=== PATIENT | female | born 1955 | race Caucasian/White ===

== ENCOUNTER 2017-01-08 09:33 | Inpatient (IN) | payer OTHER ==
[~2017-01-08] VITALS: Ht 154.9 cm; Wt 73.1 kg
[2017-03-20] VITALS (10 sets, daily range): BP systolic 90–132; BP diastolic 55–76; PULSE 67–92; TEMP 98–98.8
[2017-03-20] MEDS ORDERED: PRILOSEC 20MG20 MG PO (06:17)
[2017-03-20] MEDS ORDERED: CLARITIN 1010 MG/TAB PO (06:18)
[2017-03-20] MEDS ORDERED: VOLTAREN-XR100 MG PO (06:19)
[2017-03-20] MEDS ORDERED: CENTRUM SILVER1 TAB PO (06:20)
[2017-03-20] MEDS ORDERED: CO Q-1010 M1 PO ×2 (06:21→06:26)
[2017-03-20] MEDS ORDERED: B-121000 MCG PO (06:22)
[2017-03-20] MEDS ORDERED: FOLIC ACID0.4 MG PO (06:23)
[2017-03-20] MEDS ORDERED: VITAMIN C500 MG PO (06:24)
[2017-03-20] MEDS ORDERED: METABOUP PLUS PO (06:24)
[2017-03-20] MEDS ORDERED: TYLENOL 8 HR PO (06:25)
[2017-03-20] MEDS ORDERED: ZOCOR 20MG20 MG PO (06:25)
[2017-03-20] MEDS ORDERED: [UNRECOGNIZED DRUG - OTHER] PO (06:27)
[2017-03-20] MEDS ORDERED: POTASSIUM PO (06:29)
[2017-03-20] MEDS ORDERED: NIFEREX-15150 MG/CAP PO (06:31)
[2017-03-20] MEDS ORDERED: NATURE'S BLE1000 MCG PO (06:32)
[2017-03-20] MEDS ORDERED: BACTROBAN 22GM22 GM NAS (06:33)
[2017-03-20] MEDS ORDERED: PHENYLEPHRINE H10 MG PO (06:34)
[2017-03-21] VITALS (7 sets, daily range): BP systolic 87–119; BP diastolic 49–67; PULSE 61–94; TEMP 98.2–98.5
[2017-03-21 06:25] LABS: HEMATOCRIT 34.6 % (37.0-47.0); HEMOGLOBIN 11.6 g/dl (12.5-16.0)
[2017-03-22 03:48] VITALS: BP 128/64; PULSE 98; TEMP 98
[2017-03-22 07:28] VITALS: BP 119/65; PULSE 103; TEMP 98
[2017-03-22 08:12] LABS: HEMATOCRIT 35.6 % (37.0-47.0); HEMOGLOBIN 11.9 g/dl (12.5-16.0)
[2017-03-22 11:08] VITALS: BP 112/55; PULSE 94; TEMP 99.2
[2017-03-22 16:24] VITALS: BP 128/64; PULSE 100; TEMP 98.9
[2017-03-22 20:32] VITALS: BP 128/69; PULSE 105; TEMP 99.4
[2017-03-22 23:27] VITALS: BP 135/70; PULSE 102; TEMP 98.4
[2017-03-23 03:21] VITALS: BP 125/66; PULSE 100; TEMP 98.1
[2017-03-23] MEDS ORDERED: ASPI325T6 PO (06:28)
[2017-03-23] MEDS ORDERED: NORCO 325 MG-7.1 TAB PO (06:29)
[2017-03-23] MEDS ORDERED: SENOKOT S 50 MG1 TAB PO (06:30)
[2017-03-23] MEDS ORDERED: ROXICODONE 55 MG/TAB PO (06:30)
[2017-03-23 07:15] VITALS: BP 112/73; PULSE 99; TEMP 98.4
== END 2017-03-23 10:49 | disposition home or self-care (01) | DRG 470 ==
LOC: JCC 03-20 05:18 → MEDICAL 03-20 05:18 → JCC 03-20 05:27
PROVIDERS: Orthopaedic Surgery
PROC: 0SRC0J9 Replacement of Right Knee Joint with Synthetic Substitute, Cemented, Open Approach (ICD-10-PCS; principal; 2017-03-20 07:30)
DX: M17.11 Unilateral primary osteoarthritis, right knee (principal); M06.9 Rheumatoid arthritis, unspecified; F17.210 Nicotine dependence, cigarettes, uncomplicated
CPT/HCPCS: A4315; A9284; C1713; C1776; J0690; J1100; J2250; J2270; J2405; J2704; J2765; J7120

== ENCOUNTER → 2017-03-12 | Outpatient (CLI) | payer OTHER ==
[~2017-03-12] MED LIST: ASPI325T6 PO; B-121000 MCG PO; BACTROBAN 22GM22 GM NAS; CENTRUM SILVER1 TAB PO; CLARITIN 1010 MG/TAB PO; CO Q-1010 M1 PO; FOLIC ACID0.4 MG PO; METABOUP PLUS PO; NATURE'S BLE1000 MCG PO; NIFEREX-15150 MG/CAP PO; NORCO 325 MG-7.1 TAB PO; PHENYLEPHRINE H10 MG PO; POTASSIUM PO; PRILOSEC 20MG20 MG PO; ROXICODONE 55 MG/TAB PO; SENOKOT S 50 MG1 TAB PO; TYLENOL 8 HR PO; VITAMIN C500 MG PO; VOLTAREN-XR100 MG PO; ZOCOR 20MG20 MG PO; [UNRECOGNIZED DRUG - OTHER] PO
== END ==
LOC: COL.LAB 11:53
DX: Z96.651 Presence of right artificial knee joint (principal)